=== PATIENT | male | born 1960 | race Caucasian/White ===

== ENCOUNTER 2018-09-20 07:06 | Day surgery (SDC) | payer OTHER ==
[2018-09-20] MEDS ORDERED: ceFAZolin 2 GM/50 ML 2 GM/50 ML BAG IV ONE (07:45)
[2018-09-20] MEDS ORDERED: BUPIVACAINE 0.5% PF 30 ML VIAL ONE (08:08)
--- NOTE | 2018-09-20 08:08 | ANESTHESIA ---
Pre-Anesthesia VS, & Labs - Diagnosis right inguinal hernia - Procedure right inguinal hernia repair Vital Signs: Temp Pulse Resp BP Pulse Ox 36.2 C L 70 16 146/96 H 96 09/20/18 07:53 09/20/18 07:53 09/20/18 07:53 09/20/18 07:53 09/20/18 07:53 Height 5 ft 5 in Weight (kg) 81.8 kg - NPO >8 hours Home Medications and Allergies Home Medications: Ambulatory Orders Aspirin [Aspirin EC] 81 mg PO DAILY 09/07/18 Metformin HCl 500 mg PO BID 09/07/18 Omeprazole 20 mg PO DAILY 09/07/18 Oxybutynin Chloride 5 mg PO TID PRN 09/07/18 Testosterone Cypionate [Depo-Testosterone] 200 mg IM ONCE 09/07/18 Simvastatin [Zocor] 10 mg PO QPM 08/31/14 Tamsulosin [Flomax] 0.4 mg PO DAILY 08/31/14 Aspirin [Aspirin EC] 81 mg PO DAILY 09/07/18 Metformin HCl 500 mg PO BID 09/07/18 Omeprazole 20 mg PO DAILY 09/07/18 Oxybutynin Chloride 5 mg PO TID PRN 09/07/18 Testosterone Cypionate [Depo-Testosterone] 200 mg IM ONCE 09/07/18 Allergies/Adverse Reactions: Allergies Allergy/AdvReac Type Severity Reaction Status Date / Time No Known Drug Allergies Allergy Verified 08/31/14 08:47 Anes History & Medical History - Anesthetic History Anesthesia Complications: reports: Other-see comment (issues with breathing post op) Family history of Anesthesia Complications: Denies Family history of Malignant Hyperthermia: Denies - Medical History Cardiovascular: reports: Congestive heart failure, High cholesterol, Murmur Pulmonary: reports: Other Gastrointestinal: reports: GERD, Ulcers, Diverticulitis Urinary: reports: Benign prostate hypertrophy Musculoskeletal: reports: Osteoarthritis Endocrine/Autoimmune: reports: Type 2 diabetes Skin: reports: None Smoking Status: Never smoker - Surgical History General: Colonoscopy, Other Orthopedic: Other Exam General: Alert Dental: Other (cap) Mouth Openin Fingerbreadth Neck Mobility: Normal Mallampati classification: II Thyromental Distance: greater than 6 cm Respiratory: Lungs clear, Normal breath sounds, No respiratory distress, No accessory muscle use Cardiovascular: Regular rate, Normal S1, Normal S2, No murmurs Mental/Cognitive Status: Alert/Oriented X3, Normal for patient Plan Anesthesia Type: General Consent for Procedure(s) Verified and Reviewed: Yes Code Status: Attempt Resuscitation ASA classification: 2-Mild systemic disease Is this case an emergency?: No
[2018-09-20] MEDS ORDERED: LACTATED RINGERS 1,000 ML IV ONE ×2 (08:10→09:33)
[2018-09-20] MEDS ORDERED: BUPIVACAINE 0.5% PF 30 ML VIAL INFIL ONE (09:16)
[2018-09-20] MEDS ORDERED: LIDOCAINE-MPF 2% 5 ML VIAL IM ONE (09:30)
[2018-09-20] MEDS ORDERED: ONDANSETRON 4 MG/2 ML VIAL IVP ONE (09:30)
[2018-09-20] MEDS ORDERED: MIDAZOLAM 2 MG/2 ML VIAL IVP ONE (09:30)
[2018-09-20] MEDS ORDERED: fentaNYL 100 MCG/2 ML VIAL IVP ONE (09:30)
[2018-09-20] MEDS ORDERED: KETOROLAC 30 MG/ML VIAL IVP ONE (09:30)
[2018-09-20] MEDS ORDERED: PROPOFOL 200 MG/20 ML VIAL IVP ONE (09:30)
[2018-09-20] MEDS ORDERED: HYDROmorphone 0.5 MG/0.5 ML SYRINGE IVP PRN (09:58)
[2018-09-20] MEDS ORDERED: HYDROcod/ACETAM 5/325 MG TABLET PO PRN (09:58)
[2018-09-20] MEDS ORDERED: ONDANSETRON 4 MG/2 ML VIAL IVP PRN (09:58)
--- NOTE | 2018-09-20 10:04 | OPERATIVE REPORT ---
Operative Report - General Procedure Date: 09/20/18 Planned Procedure: Right inguinal herniorrhaphy Pre-Op Diagnosis: Right inguinal hernia Procedure Performed: Right direct inguinal herniorrhaphy with mesh Post Op Diagnosis: Right direct inguinal hernia with significant scarring of the inguinal neno - Procedure Note Primary Surgeon: Braeden Keating MD Anesthesia Provider: Milton Minor CRNA Anesthesia Technique: Local (30 mL 1/2% marcaine), MAC IV Fluids (mL): 900 Estimated Blood Loss (mL): 5 Drain/Tube Type: Other (None) Complications: None - Other Other Information/Narrative: OPERATIVE DESCRIPTION/REPORT: After verbal and written informed consent was obtained detailing the risks of infection, bleeding requiring transfusion with its risks, nerve injury, and , and after I met with the patient confirming the surgery and the site of the surgery and after initialing the site of the surgery with a surgical marker, the patient was brought to the operative suite and placed supine on the operating table. Great care was taken to avoid pressure points to prevent pressure necrosis or nerve injury. Monitoring devices were applied along with TEDs and pneumatic compressive stockings (to prevent DVT). The patient received preoperative antibiotics for surgical prophylaxis. Milton Minor CRNA sedated and anesthetized the patient for the entire procedure. The patient was prepped and draped in the usual sterile manner. With the patient draped my initials were clearly visible. A "time in" then confirmed that the patient was identified with 3 identifiers (name, date and medical record number), the history and physical was in the chart, the signed consent confirming the procedure was in the chart, the patient was in the correct position, the aforementioned prophylactic measures were in place or given, we had the correct personnel and equipment to complete the procedure and that anesthesia, surgery and nursing were given an opportunity to express any concerns. With the agreement of everyone in the room, we proceeded with the operation. After the inguinal area was injected with % marcaine, anesthetizing the area, a standard inguinal incision was made and dissection was carried down to the external oblique aponeurosis using a combination of Metzenbaum scissors and Bovie electrocautery. There was marketed scarring in this area as though this was a redo herniorrhaphy. Due to the amount of scarring a look back at the skin and I may be able to make out a previous incision. This was not discussed or even appreciated preoperatively. The external oblique aponeurosis was cleared of overlying adherent tissue, and the external ring was delineated. There was significant scarring in the area and the cord contents were densely adherent to a hernia sac that was following the cord contents down towards the scrotum. The hernia sac contained bowel. I cannot emphasize how much scarring there was in the area. In attempting to free the cord contents from the inguinal canal there was significant scarring and obliteration of the space. Due to concerns that I had for injuring the cord contents, I examined the cord contents and failed to reveal any sort of indirect sac. Having exposed the inguinal canal, the cord structures were from the hernia sac using sharp dissection ue to the adhesions, and a Westmont drain was placed around the cord structures at the level of the pubic tubercle. This Westmont drain was then used to retract the cord structures as needed. The hernia sac was then dissected back to the opening in the floor of the canal which could be done without extensive dissection of the inguinal canal as it was located medially just 1 cm lateral to the pubic tubercle. The hernia was inverted back into the abdominal cavity and a Covidien medium mesh plug (Ref# [id number], Lot# [id number], Use by date 2022-09-01) inserted into the hernia defect. The plug was secured using interrupted 0 PDS sutures to approximate the shelving edge of Poupart's ligament, grabbing a small edge of the mesh in the process, to the conjoined tendon. 4 sutures were used to approximate the shelving edge to the conjoined tendon thus repairing the direct hernia. The enlay patch was not used because dissection of this area would have caused significant harm and the hernia had already been repaired. This level of redundancy was not worth the surgical risk. The Westmont drain was removed. The wound was then irrigated using sterile saline, and hemostasis was obtained using Bovie electrocautery. The remaining local anesthesia was injected up to a total of 30 mL of half percent Marcaine. Lina's fascia was approximated using a running 3-0 Vicryl suture. The skin incision was approximated with 4-0 Monocryl in a subcuticular fashion. The skin was prepped with benzoin and steristrips were applied. At this point a time out was performed that confirmed that all the counts were correct, the procedure that was performed, the blood loss, the IV fluids administered, and the patients condition. A dressing was then applied. Gentle downward traction ensured that the testes were well seated in the scrotum. Having tolerated the procedure well, the patient was taken to recovery room in good and stable condition. Dragon disclaimer: This document was created in part using voice recognition technology. Because of the inherent limitations of the system ([employer]'s Dragon Dictate user manual states that the licensee understands that speech recognition is a statistical process and that recognition errors are inherent in the process), occasional same sounding word substitutions and grammatical errors do occur and persist despite proofreading. Please read this document for context.
[2018-09-20] MEDS ORDERED: HYDROcod/ACETAM 5/325 MG TABLET ONE (10:51)
[2018-09-20 11:03] VITALS: BP 141/96
== END 2018-09-20 07:07 | disposition home or self-care (01) ==
LOC: SDS 07:06
PROVIDERS: ATTEND Surgery
PROC: 0YU50JZ Supplement Right Inguinal Region with Synthetic Substitute, Open Approach (ICD-10-PCS; principal; 2018-09-20 08:30)
DX: K40.90 Unilateral inguinal hernia, without obstruction or gangrene, not specified as recurrent (principal); L90.5 Scar conditions and fibrosis of skin; E11.9 Type 2 diabetes mellitus without complications; K21.9 Gastro-esophageal reflux disease without esophagitis; E78.5 Hyperlipidemia, unspecified; N40.0 Benign prostatic hyperplasia without lower urinary tract symptoms; Z79.82 Long term (current) use of aspirin; Z79.84 Long term (current) use of oral hypoglycemic drugs
CPT/HCPCS: 49505; A9270; J0690; J7120

== ENCOUNTER 2019-08-15 10:09 | Emergency (ER) | payer OTHER ==
[2019-08-15] MEDS ORDERED: HYDROmorphone 1 MG/ML CARPUJECT IVP STA ×2 (10:29→11:43)
--- NOTE | 2019-08-15 10:33 | ED Physician Documentation ---
PD HPI LOWER EXT INJURY - Stated complaint Stated Complaint: RT ANKLE INJ - Chief complaint Chief Complaint: Trauma Ext - History obtained from History obtained from: Patient, Family - History of Present Illness PD HPI LOW EXT INJURY LOCATION: Right, Foot Type of injury: Twist Where injury occurred: Other (outside in the snow and ice) Timing - onset: How many hours ago (1) Timing - duration: Hours (1) Timing - details: Abrupt onset Pain level max: 8 Pain level now: 3 Improved by: Rest, Ice, Immobilization Worsened by: Moving, Palpating Associated symptoms: No: Weakness, Numbness, Tingling, Swelling Contributing factors: No: Anticoagulated Similar symptoms before: Has not had sx before Recently seen: Not recently seen Review of Systems Constitutional: denies: Fever, Chills Respiratory: denies: Cough GI: denies: Vomiting, Diarrhea Skin: denies: Rash Musculoskeletal: denies: Neck pain, Back pain Neurologic: denies: Headache PD PAST MEDICAL HISTORY - Past Medical History Cardiovascular: Congestive heart failure, High cholesterol, Murmur Respiratory: Other Endocrine/Autoimmune: Type 2 diabetes GI: GERD, Ulcers, Diverticulitis : Benign prostate hypertrophy HEENT: Chronic vision loss Psych: Anxiety, Claustrophobia Musculoskeletal: Osteoarthritis Derm: None - Past Surgical History Past Surgical History: Yes General: Colonoscopy, Other Ortho: Other - Present Medications Home Medications: Ambulatory Orders Medication Instructions Recorded Confirmed Simvastatin [Zocor] 10 mg PO QPM 08/31/14 09/20/18 Tamsulosin [Flomax] 0.4 mg PO DAILY 08/31/14 09/20/18 Aspirin [Aspirin EC] 81 mg PO DAILY 09/07/18 09/20/18 Metformin HCl 500 mg PO BID 09/07/18 09/20/18 Omeprazole 20 mg PO DAILY 09/07/18 09/20/18 Oxybutynin Chloride 5 mg PO TID PRN 09/07/18 09/20/18 Testosterone Cypionate 200 mg IM ONCE 09/07/18 09/20/18 [Depo-Testosterone] Oxycodone HCl/Acetaminophen 1 - 2 each PO Q6H PRN #30 tablet 08/15/19 [Percocet 5-325 mg Tablet] - Allergies Allergies/Adverse Reactions: Allergies Allergy/AdvReac Type Severity Reaction Status Date / Time No Known Drug Allergies Allergy Verified 08/15/19 10:15 - Social History Does the pt smoke?: No Smoking Status: Never smoker Does the pt drink ETOH?: Yes Does the pt have substance abuse?: No - Immunizations Immunizations are current?: Yes - POLST Patient has POLST: No PD ED PE NORMAL - Vitals Vital signs reviewed: Yes - General General: Alert and oriented X 3, No acute distress, Well developed/nourished - HEENT HEENT: Moist mucous membranes - Neck Neck: Supple, no meningeal sign - Cardiac Cardiac: RRR, Strong equal pulses - Respiratory Respiratory: No respiratory distress, Clear bilaterally - Abdomen Abdomen: Soft, Non tender, Non distended - Derm Derm: Warm and dry - Extremities Extremities: Other (Deformity to the right ankle. Neurovascular intact. Swelling present.) - Neuro Neuro: Alert and oriented X 3 - Psych Psych: Normal mood, Normal affect Results - Vitals Vitals: Vital Signs - 24 hr 08/15/19 08/15/19 08/15/19 10:15 10:52 11:56 Temperature 36.6 C Heart Rate 80 76 70 Respiratory 16 18 18 Rate Blood Pressure 152/95 H 141/100 H 145/94 H O2 Saturation 96 95 95 08/15/19 08/15/19 08/15/19 12:30 12:33 12:35 Temperature Heart Rate 93 81 79 Respiratory 17 14 16 Rate Blood Pressure 143/86 H 146/86 H O2 Saturation 97 97 97 08/15/19 08/15/19 12:40 13:58 Temperature Heart Rate 77 89 Respiratory 18 18 Rate Blood Pressure 128/91 H 151/93 H O2 Saturation 97 94 Oxygen O2 Source Room air - Rads (name of study) Right ankle x-ray Radiology: Prelim report reviewed, EMP read contemporaneously, See rad report (1. Acute trimalleolar right ankle fracture. 2. Complete posterior dislocation and mild to moderate lateral subluxation of the right tibiotalar joint. 3. Marked right ankle swelling. ) Right ankle x-ray postreduction Radiology: Prelim report reviewed, EMP read contemporaneously, See rad report (Post reduction changes at the right ankle. The ankle mortise and fracture fragments appear aligned. ) Procedures - Splint (location) r ankle Splint applied by: Physician, Tech Type of splint: Fiberglass, Short leg, Posterior, Stirrup Other: Patient tolerated well, No complications, Neurovascular intact, Crutches provided - Reduction Body part reduced: Right, Ankle Fracture or dislocation: Fracture dislocation Anesthesia: Conscious sedation Reduction aftercare: NV intact, Xray confirms reduction, Alignment improved, Splint applied, Crutches, Patient tolerated well - Procedural sedation Sedation prep: Informed consent, Last meal (5 hrs MANAGER [facility]), IV O2 monitor, ET CO2 monitor, Other (2nd MD present Dr. Richards) Sedation medications: propofol, given by MD Patient status during sedation: Responds to tactile, Vitals remained stable, Maintained airway, Recovered uneventfully Sedation recovery: Recovered uneventfully, Back to baseline PD MEDICAL DECISION MAKING - ED course Complexity details: reviewed results, re-evaluated patient, considered differential, d/w patient, d/w family, d/w wig sales consultant ED course: Patient with a fracture dislocation of the right ankle. Reduced under propofol sedation. Tolerated well. Placed in a posterior splint with stirrup. Discussed the case with Dr. Denney, orthopedics who will follow-up in the office. Neurovascularly intact. Compartments are soft. Patient and family counseled regarding signs and symptoms for which I believe and urgent re- evaluation would be necessary. Patient with good understanding of and agreement to plan and is comfortable going home at this time This document was made in part using voice recognition software. While efforts are made to proofread this document, sound alike and grammatical errors may occur. Departure - Departure Disposition: 01 Home, Self Care Clinical Impression: Trimalleolar fracture of ankle, closed Qualifiers: Encounter type: initial encounter Laterality: right Qualified Code(s): S82.851A - Displaced trimalleolar fracture of right lower leg, initial encounter for closed fracture Ankle dislocation Qualifiers: Encounter type: initial encounter Laterality: right Qualified Code(s): S93.04XA - Dislocation of right ankle joint, initial encounter Condition: Good Instructions: ED Fx Lower Ext Follow-Up: Oneil Denney MD [Provider Admit Priv/Credential] - [facility] [Provider Group] - Within 1 week Prescriptions: Oxycodone HCl/Acetaminophen [Percocet 5-325 mg Tablet] 1 - 2 each PO Q6H PRN #30 tablet PRN Reason: pain Comments: Elevate the leg whenever possible. You are to be nonweightbearing. Use the crutches to get around. Follow-up with orthopedics within the next week. Return if you worsen. This injury will likely require surgery. Do not drink alcohol or drive while on narcotic pain medicine. Note that many narcotic pain relievers also contain tylenol/acetaminophen. Please ensure that your total dose of acetaminophen from all sources does not exceed 3 grams (3000mg) per day. You may constipated on this medication, take a stool softener such as "Colace" twice a day while you are on it. Also recommend a [id number] laxative such as senna or MiraLAX any day that you do not have a bowel movement. If you received narcotic pain medication in the emergency department, do not drive or operate machinery for the next 24 hours. Discharge Date/Time: 08/15/19 14:04
[2019-08-15] MEDS ORDERED: PROPOFOL 200 MG/20 ML VIAL IVP STA (12:13)
--- NOTE | 2019-08-15 12:36 | XRAY Report ---
Reason: fall, R ankle deformity Procedure Date: 08/15/2019 Accession Number: [id number] / [id number] Procedure: XR - Ankle 3 View RT CPT Code: Final Report FULL RESULT: EXAM: RIGHT ANKLE RADIOGRAPHY EXAM DATE: 08/15/2019 12:03 PM. CLINICAL HISTORY: Fall, right ankle deformity. COMPARISON: None. TECHNIQUE: 3 views. FINDINGS: Bones: Acute comminuted and displaced posterior malleolar fracture. Acute comminuted distal right fibular fracture with 4 mm of lateral displacement and 60 degrees of dorsal angulation of the more distal fragment. Small avulsion fracture at the tip of the medial malleolus is noted. Medial malleolus not well evaluated due to projection. Joints: Complete posterior dislocation and lateral subluxation of the tibiotalar joint. Soft Tissues: Marked right ankle soft tissue swelling noted. No radiopaque foreign bodies are noted. IMPRESSION: 1. Acute trimalleolar right ankle fracture. 2. Complete posterior dislocation and mild to moderate lateral subluxation of the right tibiotalar joint. 3. Marked right ankle swelling. RADIA
[2019-08-15] MEDS ORDERED: oxyCODONE 5 MG TABLET PO STA (13:07)
--- NOTE | 2019-08-15 13:09 | XRAY Report ---
Reason: s/p reduction Procedure Date: 08/15/2019 Accession Number: [id number] / [id number] Procedure: XR - Ankle 3 View RT CPT Code: Final Report FULL RESULT: EXAM: RIGHT ANKLE RADIOGRAPHY EXAM DATE: 08/15/2019 01:01 PM. CLINICAL HISTORY: Status post reduction. COMPARISON: ANKLE 3 VIEW RT 08/15/2019 11:30 AM. TECHNIQUE: 3 views. FINDINGS: Ankle now in a splint. Fracture of the distal fibula appears aligned. The medial malleolar fracture appears nondisplaced. Minimal displacement of posterior malleolus fracture. The ankle mortise appears aligned. IMPRESSION: Post reduction changes at the right ankle. The ankle mortise and fracture fragments appear aligned. RADIA
[2019-08-15 13:58] VITALS: BP 151/93
== END 2019-08-15 14:04 | disposition home or self-care (01) ==
LOC: ED 10:09
DX: S82.851A Displaced trimalleolar fracture of right lower leg, initial encounter for closed fracture (principal); S93.04XA Dislocation of right ankle joint, initial encounter; W00.0XXA Fall on same level due to ice and snow, initial encounter; E11.9 Type 2 diabetes mellitus without complications; Z79.84 Long term (current) use of oral hypoglycemic drugs; Z79.82 Long term (current) use of aspirin
CPT/HCPCS: 27818; 73610; 96374; 96376; 99152; 99153; 99283; 99284; A9270; J1170

== ENCOUNTER 2019-08-28 15:23 | Outpatient (CLI) | payer OTHER ==
[2019-08-28 15:49] LABS: BASOPHILS # (AUTO) 0.1 10^3/uL (0.0-0.1); BASOPHILS % (AUTO) 0.8 %; EOSINOPHILS # (AUTO) 0.2 10^3/uL (0.0-0.7); EOSINOPHILS % (AUTO) 2.4 %; HGB - HEMOGLOBIN 16.5 g/dL (14.0-18.0); LYMPHOCYTES # (AUTO) 1.9 10^3/uL (1.5-3.5); LYMPHOCYTES % (AUTO) 25.1 %; MEAN CORPUSCULAR HEMOGLOBIN 29.6 pg (27.0-31.0); MEAN CORPUSCULAR HGB CONC 32.5 g/dL (32.0-36.0); MEAN CORPUSCULAR VOLUME 91.2 fL (80.0-94.0); MEAN PLATELET VOLUME 9.1 fL (7.4-11.4); MONOCYTES # (AUTO) 0.8 10^3/uL (0.0-1.0); NEUTROPHILS # (AUTO) 4.6 10^3/uL (1.5-6.6); NEUTROPHILS % (AUTO) 60.3 %; PLT - PLATELET COUNT 278 10^3/uL (130-450); RED BLOOD COUNT 5.57 10^6/uL (4.70-6.10); RED CELL DISTRIBUTION WIDTH 13.8 % (12.0-15.0); WHITE BLOOD COUNT 7.7 x10^3/uL (4.8-10.8)
[2019-08-28 16:02] LABS: CALCIUM 9.2 mg/dL (8.5-10.3); CREATININE 1.1 mg/dL (0.6-1.2)
[2019-08-28 16:09] LABS: HEMOGLOBIN A1C 0.93 g/dL; HEMOGLOBIN A1C % 7.2 % (4.6-6.2)
== END 2019-08-28 15:24 | disposition home or self-care (01) ==
LOC: LAB 15:23
PROVIDERS: ATTEND Orthopaedic Surgery Sports Medicine
DX: Z01.812 Encounter for preprocedural laboratory examination (principal); S82.851D Displaced trimalleolar fracture of right lower leg, subsequent encounter for closed fracture with routine healing; E11.9 Type 2 diabetes mellitus without complications
CPT/HCPCS: 36415; 80048; 83036; 85025

== ENCOUNTER 2019-08-30 06:03 | Day surgery (SDC) | payer OTHER ==
--- NOTE | 2019-08-28 16:08 | CONSULTATION NOTE ---
Consultation Report: Dr Denney had requested that we see this patient. Patient in to Pre anesthesia office today. Has right ankel fracture which is scheduled for repair on the of this month. Patient reports history of diabetes and takes metformin for that. Reports his BS are under control. He will have some labs drawn today including his A1C. He denies any history of heart disease, denies history of chest pain/pressure or sob at rest and/or with exertion. Denies any history of ID's in the past. Denies any lung disease, and respiratory problems. Over all looks healthy. He reports delayed emergence and "shallow breathing" postoperative with his previous surgeries. I did speak with him about doing a regional nerve block to minimize the use of opioids and anesthetic drugs to preserve his breathing capacities postoperatively. He agreed with the nerve block.
[2019-08-30] MEDS ORDERED: CEFAZOLIN SODIUM IN 0.9 % NACL 2 GM/100 ML BAG IV ONE (06:25)
[2019-08-30] MEDS ORDERED: LACTATED RINGERS 1,000 ML IV ONE ×2 (06:25→08:53)
--- NOTE | 2019-08-30 06:54 | ANESTHESIA ---
Pre-Anesthesia VS, & Labs - Diagnosis right ankle fracture - Procedure right ankle ORIF Vital Signs: Temp Pulse Resp BP Pulse Ox 36.1 C L 78 16 159/99 H 95 08/30/19 06:25 08/30/19 06:25 08/30/19 06:25 08/30/19 06:25 08/30/19 06:25 Height 5 ft 5 in Weight (kg) 80.6 kg Body Mass Index 29.4 Home Medications and Allergies Home Medications: Ambulatory Orders Cyanocobalamin (Vitamin B-12) [Vitamin B-12 (1000 mcg sublingual)] 1,000 mcg SL DAILY 08/28/19 Fluticasone Propionate [24 Hour Allergy] 2 spray NS DAILY 08/28/19 Naproxen Sodium [Aleve] 220 mg PO ONCE PRN 08/28/19 Simvastatin [Zocor] 40 mg PO QPM 08/31/14 Tamsulosin [Flomax] 0.4 mg PO DAILY 08/31/14 Aspirin [Aspirin EC] 81 mg PO DAILY 09/07/18 Metformin HCl 500 mg PO BID 09/07/18 Omeprazole 40 mg PO DAILY 09/07/18 Oxybutynin Chloride 5 mg PO TID PRN 09/07/18 Testosterone Cypionate [Depo-Testosterone] 200 mg IM ONCE 09/07/18 Cyanocobalamin (Vitamin B-12) [Vitamin B-12 (1000 mcg sublingual)] 1,000 mcg SL DAILY 08/28/19 Fluticasone Propionate [24 Hour Allergy] 2 spray NS DAILY 08/28/19 Naproxen Sodium [Aleve] 220 mg PO ONCE PRN 08/28/19 Allergies/Adverse Reactions: Allergies Allergy/AdvReac Type Severity Reaction Status Date / Time No Known Drug Allergies Allergy Verified 08/15/19 10:15 Anes History & Medical History - Anesthetic History Anesthesia Complications: reports: No previous complications, Other-see comment (reports postoperative " regional nerve block") Family history of Anesthesia Complications: Denies Family history of Malignant Hyperthermia: Denies - Medical History Cardiovascular: reports: High cholesterol, Murmur Pulmonary: reports: Other Gastrointestinal: reports: GERD, Ulcers, Diverticulitis Urinary: reports: Benign prostate hypertrophy Neuro: reports: None Musculoskeletal: reports: Osteoarthritis Endocrine/Autoimmune: reports: Type 2 diabetes Skin: reports: None Smoking Status: Former smoker Psychosocial: reports: Alcohol - Surgical History General: Colonoscopy, Other Orthopedic: Other Exam General: Alert, Oriented x3, Cooperative, No acute distress Dental: WNL Mouth Openin Fingerbreadth Neck Mobility: Normal Mallampati classification: II Thyromental Distance: 4-6 cm Respiratory: Lungs clear, Normal breath sounds, No respiratory distress, No accessory muscle use Cardiovascular: Regular rate, Normal S1, Normal S2, No murmurs Abdomen: Normal bowel sounds, Soft, No tenderness, No hepatospenomegaly, No masses Extremities: No clubbing, No cyanosis, No edema, Normal pulses, No tenderness/swelling Neurological: Normal gait, Normal speech, Strength at 5/5 X4 ext, Normal tone, Sensation intact, Cranial nerves 3-12 NL, Reflexes 2+ Mental/Cognitive Status: Alert/Oriented X3, Normal for patient Cognitive Status: Within normal limits Plan Anesthesia Type: General, Popliteal Block, Adductor Block Regional Block: Per Surgeon's request for Post Op pain control Consent for Procedure(s) Verified and Reviewed: Yes Code Status: Attempt Resuscitation ASA classification: 2-Mild systemic disease Is this case an emergency?: No
[2019-08-30] MEDS ORDERED: ROPIVACAINE 0.5% PF 20 ML AMPULE ONE (07:06)
[2019-08-30] MEDS ORDERED: BUPIVACAINE 0.25% PF 30 ML VIAL ONE (07:07)
[2019-08-30] MEDS ORDERED: ONDANSETRON 4 MG/2 ML VIAL IVP ONE (07:45)
[2019-08-30] MEDS ORDERED: DEXAMETHASONE 4 MG/ML VIAL IVP ONE (07:45)
[2019-08-30] MEDS ORDERED: MIDAZOLAM 2 MG/2 ML VIAL IVP ONE (07:45)
[2019-08-30] MEDS ORDERED: LIDOCAINE-MPF 2% 5 ML VIAL IM ONE (07:45)
[2019-08-30] MEDS ORDERED: PHENYLEPHRINE 10 MG/ML VIAL IV ONE (07:45)
[2019-08-30] MEDS ORDERED: fentaNYL 100 MCG/2 ML VIAL IVP ONE (07:45)
[2019-08-30] MEDS ORDERED: ePHEDrine 50 MG/ML VIAL IVP ONE (07:45)
[2019-08-30] MEDS ORDERED: GLYCOPYRROLATE 1 MG/5 ML VIAL IVP ONE (07:45)
[2019-08-30] MEDS ORDERED: PROPOFOL 200 MG/20 ML VIAL IVP ONE (07:45)
[2019-08-30] MEDS ORDERED: BUPIVACAINE 0.25% PF 30 ML VIAL SUBQ ONE ×2 (08:21)
[2019-08-30] MEDS ORDERED: ONDANSETRON 4 MG/2 ML VIAL IVP PRN (10:42)
[2019-08-30] MEDS ORDERED: oxyCODONE 5 MG TABLET PO PRN (10:42)
[2019-08-30] MEDS ORDERED: fentaNYL 100 MCG/2 ML VIAL ONE (10:43)
--- NOTE | 2019-08-30 10:47 | IMMEDIATE POSTOPERATIVE NOTE ---
Immediate Postoperative Note - Procedure Note Procedure Date: 08/30/19 Pre-Op Diagnosis: Right ankle trimalleolar fracture dislocation Procedure: Right ankle open reduction internal fixation lateral and medial malleoli, Splint treatment posterior malleolar fracture Post-Op Diagnosis: Same Primary Surgeon: Yayo Denney MD Shop Welder: none Anesthesia Type: General LMA, Local, Regional block Findings: as above, also see dictation Complications: No complications Estimated Blood Loss (in cc): 50 Drains, Catheters, Devices: none Specimens and Cultures: none Plan of Care: Patient tolerated procedure well instrument and sponge counts correct patient transferred to recovery room in stable condition. Patient will be nonweightbearing right lower extremity he would ice and elevate at rest he would move knee and toes as comfortable he would use assistance and assist device for ambulation nonweightbearing right lower extremity. He would follow-up in 10 to 14 days or sooner should problems questions or worsening of his condition arise.
--- NOTE | 2019-08-30 10:58 | XRAY Report ---
Reason: ORIF RIGHT ANKLE Procedure Date: 08/30/2019 Accession Number: [id number] / [id number] Procedure: FL - OR C-Arm Procedure CPT Code: Final Report FULL RESULT: EXAM: FLUOROSCOPIC GUIDANCE EXAM DATE: 08/30/2019 10:35 AM. CLINICAL HISTORY: ORIF right ankle. COMPARISON: None. FINDINGS: AP and lateral projection fluoroscopic capture images demonstrate a lateral plate and screw construct securing the fibular fracture with an additional trans-syndesmotic screw as well as an interfragmentary screw. IMPRESSION: Fluoroscopic guidance provided for right ankle ORIF. Total fluoroscopy time: 38 seconds. Number of images: 4. RADIA
[2019-08-30] MEDS ORDERED: ACETAMINOPHEN 1,000 MG/100 ML 100 ML IV ONE (11:04)
[2019-08-30 11:28] VITALS: BP 142/95
[2019-08-30] MEDS ORDERED: oxyCODONE 5 MG TABLET ONE (11:49)
--- NOTE | 2019-08-30 12:52 | OPERATIVE REPORT ---
DATE OF SERVICE: 08/30/2019 Physician: Oneil Denney MD SURGEON: Oneil Denney MD POLITICAL SCIENCE FACULTY MEMBER: None. ANESTHESIA PROVIDER: Lopez Bueno CRNA. ANESTHESIA TYPE: Right side lower extremity regional block under ultrasound guidance as well as 20 mL 0.25% plain Marcaine as well as general laryngeal mask airway anesthesia. ESTIMATED BLOOD LOSS: 50 mL COMPRESSION DEVICE: Left calf sequential compression device boot. TOURNIQUET TIME: 117 minutes at 275 mmHg. FLUIDS: 500 mL lactated Ringer's. ORTHOPEDIC IMPLANTS: Tray distal fibular periarticular plate right side, posterolateral plate long with associated 3.5 fully threaded cortical screws and 4.0 fully threaded cancellous screws as well as an additional 3.5 cortical screw outside of the plate as well as a 5.5 BioComposite Arthrex anchor for the medial malleolus. INTRAOPERATIVE COMPLICATIONS: None noted. PREOPERATIVE DIAGNOSIS: Right ankle trimalleolar fracture dislocation. POSTOPERATIVE DIAGNOSIS: Right ankle trimalleolar fracture dislocation. PROCEDURE 1. Right ankle open reduction and internal fixation of lateral malleolus. 2. Right ankle open reduction and internal fixation of medial malleolus. 3. Right ankle syndesmotic fixation. 4. Right ankle splint fixation of posterior malleolar fracture. HISTORY OF PRESENT ILLNESS: Patient is a 59-year-old male who had an unstable ankle injury a number of days ago, was indicated for operative treatment. Please see previous clinic discussion for risks, benefits, and alternatives. These were again highlighted with the patient in the preoperative care unit. The patient and the patient's 's questions are answered. They verbalize understanding above. The patient verbalized wish to proceed with operative treatment. Informed consent was given. On 08/30/2019, the patient is identified in the preoperative care unit. He identified his right ankle as the operative site. This is signed. The patient receives preoperative weight-based IV antibiotics, brought to the operating room after regional anesthesia was administered. He is placed in a supine position. Head, neck and extremities placed in anatomically comfortable and safe position to avoid peripheral nerve stretch compression. General LMA anesthesia is administered. The patient's right lower extremity is well padded, tourniquet placed high on the right thigh. The patient's right ankle was previously shaved in the preop area and his right lower extremity was pre-scrubbed with Hibiclens solution, then alcohol, followed by ChloraPrep and draped under sterile conditions. At this time, surgical pause identifies right ankle as operative site. At this point, Esmarch bandage is used to exsanguinate the limb. Tourniquet is inflated to 275 mmHg. At this point, surgical pause identifies right ankle again and then a lateral incision was made over the distal fibula centered over the fracture site. This is through skin and then spreading dissection carried out down to the lateral aspect of the fibula, taking care to avoid any injury to the adjacent superficial peroneal nerve. At this point, the periosteum identified over the distal fibula. This is incised and then elevated proximally and distally, exposing the fracture, which was debrided of hematoma. There was noted to be significant comminution of the posterior aspect of the distal fragment making the necessity of a quite long oblique lag screw necessary rather than one that is exactly perpendicular to the fracture angle. After reduction of this fracture, with heel manipulation traction and a reduction clamp, then a lag screw was placed from proximal anterior to distal posterior just through the second cortex to avoid over exuberant penetration and adjacent musculotendinous injury. At this point, this is provisionally fixed with a lag screw, followed by a neutralization plate, posterolateral selected, such that a syndesmotic screw could be placed from posterior lateral to anteromedially. At this point, the plate is held to the bone, which is precontoured and then unicortical, fully threaded cancellous 4.0 screws are placed distally and bicortical screws are placed proximally, which are 3.5 cortical screws. At this point, a large pelvic reduction clamp is used to maintain reduction across the syndesmosis with a neutral dorsiflexion of the ankle, followed by K-wire placement and then ultimately a 4 mm cannulated screw from posterolateral to anteromedial just through the second cortex on purpose so that if this were to fail or break in the future, it could be more easily removed. At this point, the ankle mortise was noted to be nicely reduced as is the syndesmosis. There is noted to be some minimal comminution at the most medial aspect, posterior aspect, and anterior aspect of the lateral fracture. Overall length, alignment is near anatomic. At this point, attention directed to the medial fracture and is noted to be a small avulsion fracture. At this point, an incision is made over the medial malleolus and is noted to be almost a distal and medial sleeve of bone. At this point, once dissection is carried out down to the fracture site it is explored to make sure there is no other more transverse or more proximal fracture of that medial malleolus. At this point, a BioComposite anchor is buried just adjacent to the fracture site after being punched and then two horizontal mattress sutures are used to pass through this thin sliver of bone and ligamentous structure, thereby reducing this medial malleolus fracture and fixing it in place. Suture limbs are tied and then cut and then laid flush. At this point, this medial side is noted to be well reduced. At this point, stress examination is noted to be negative. Final fluoroscopic images are taken. At this point, the wounds are copiously irrigated. Hemostasis is achieved and then the medial [id number] split ligamentous is repaired with 0 Vicryl and the skin is closed with 0 Vicryl, 2-0 Vicryl and interrupted nylon suture. The periosteum is closed laterally over the bone and plate, taking care to avoid any capture of neurovascular structures, and then skin is closed using 0 Vicryl, 2-0 Vicryl and interrupted nylon suture. At every level copious irrigation is carried out prior to closure. At this point, skin is washed and dried. Local anesthetic is infused. A large Xeroform dressing applied and 4 x 4 is placed. The patient is placed in a well- padded Sidney-type splint in neutral. The patient tolerated the procedure well. Instrument and sponge counts were correct. The patient was transferred to the recovery room in stable condition. He will follow standard postoperative right ankle open reduction and internal fixation protocol. The patient's is contacted in the waiting room, case is discussed. Her questions are answered. She verbalized understanding and agreement and satisfaction with plan as outlined as it had been preoperatively. The patient will be on perioperative antibiotics, perioperative DVT prophylaxis with aspirin and analgesics as necessary. They had denied any contraindication to medication plan and will use them as directed. Followup in 10-14 days or sooner should problems or questions arise. TD: 08/30/2019 11:03 DIANA
== END 2019-08-30 06:04 | disposition home or self-care (01) ==
LOC: SDS 06:03
PROVIDERS: ATTEND Orthopaedic Surgery Sports Medicine
PROC: 0QSG04Z Reposition Right Tibia with Internal Fixation Device, Open Approach (ICD-10-PCS; 2019-08-30)
PROC: 0SSF04Z Reposition Right Ankle Joint with Internal Fixation Device, Open Approach (ICD-10-PCS; 2019-08-30)
PROC: 0QSJ04Z Reposition Right Fibula with Internal Fixation Device, Open Approach (ICD-10-PCS; principal; 2019-08-30 07:30)
DX: S82.851A Displaced trimalleolar fracture of right lower leg, initial encounter for closed fracture (principal); E11.9 Type 2 diabetes mellitus without complications; E78.5 Hyperlipidemia, unspecified; R01.1 Cardiac murmur, unspecified; K21.9 Gastro-esophageal reflux disease without esophagitis; Z87.891 Personal history of nicotine dependence; Z79.82 Long term (current) use of aspirin; Z79.84 Long term (current) use of oral hypoglycemic drugs; N40.0 Benign prostatic hyperplasia without lower urinary tract symptoms; X58.XXXA Exposure to other specified factors, initial encounter
CPT/HCPCS: 27814; 27829; A9270; C1713; J0131; J0690; J7120

== ENCOUNTER 2019-12-20 08:35 | Outpatient (CLI) | payer OTHER | END 2019-12-20 08:36 | disposition home or self-care (01) | LOC: DI 08:35 | PROVIDERS: ATTEND Family Medicine | DX: I10 Essential (primary) hypertension (principal) | CPT/HCPCS: 93306 ==

== ENCOUNTER 2020-03-26 09:00 | Outpatient (CLI) | payer OTHER ==
--- NOTE | 2020-03-26 09:53 | SLEEP CARE CONSULTATION ---
Information from patient questionnaire entered by Alice Diaz. I have reviewed and concur with the information entered by Alice Diaz. This document represents the service I personally performed and the decisions made by me, Arlen Armstrong ARNP. History of Present Illness Service Date and Time: 03/26/2020 0900 Reason for Visit: New patient Chief Complaint: reports: Insomnia (hard to fall asleep and wake up throughout night), Unrefreshed sleep, Snoring, Excessive daytime sleepiness, Frequent awakenings at night. denies: Observed pauses in breathing, Fatigue, Other Date of Onset: 10 years Usual bedtime: 2200 Time it takes to fall asleep: 1+ hours Snores at night: Yes Observed to quit breathing while asleep: No Sleeps alone due to snoring: No Number of times waking at night: 2 at least Reasons for waking at night: reports: Snoring, Bathroom, Other (weird dreams). denies: Choking, Gasping for air, Pain Toss, Turn, or Twitch while sleeping: Yes Recalls having dreams: Yes Usually gets out of bed at: [id number] Feels refreshed in the morning: No Morning headache: No Sleepy or fatigued during the day: Yes Ever fallen asleep while driving: Yes (drowsy driving, no accidents) Takes day naps: Yes (1 PM most days; an hour) Dreams during day naps: Yes Prior sleep studies: No Additional HPI information: I had the pleasure of seeing CANDIDA BAEZA today regarding the possibility of him having a sleep disorder. His current complaints are insomnia, unrefreshed sleep, snoring, excessive daytime sleepiness and frequent night awakenings. He has a history of hypertension and diabetes. He recent broke his ankle last August and had to go on blood pressure medication. He walks daily and is trying to lose weight to reduce his hypertension. His is currently using a CPAP m payal. - Parasomnia Symptoms Ever been unable to move upon waking from sleep: Yes (twice that he can remember) Walks in sleep: No Talks in sleep: Yes Ever acted out dreams in sleep: Yes Ever felt weak in the knees when startled or emotional: No Bothered by creepy, crawly, restless sensations in legs: Yes (2-3 times a week) Problems with memory or concentration: Yes (intermittent; hard to memorize things) Subjective Initial Check Sleepiness Scale score: 15 Past Medical History Past Medical History: reports: Hypertension, Claustrophobia, Diabetes, Arthritis, Arrythmia (heart skips a beat since 1990-09), Anxiety, Depression, GERD, Attention deficit, Other (broke (R) ankle in August). denies: Congestive Heart Failure, Stroke, Coronary Heart Disease, Anemia, Impotence, Mood disorder Social History The patient's occupation is retired. Patient is and lives in [place]. Have you smoked in the past 12 months: No Alcohol use: Yes Alcohol amount and frequency: 1-2, once or twice/week Caffeine use: Yes Caffeine amount and frequency: 1 cup coffee/day Family History Family history of sleep disordered breathing: Yes Family Hx Sleep Apnea: Grandparent: Snoring Allergies and Home Medications Drug allergies reviewed: Yes (NKDA) Home medication list reviewed: Yes Allergy and home medication list: Fluticasone oxybutynin omeprazole simvastatin tamsulosin baby aspirin vitamin B-12, sublingual testosterone cypionate alleve metformin metoprolol succinate Review of Systems Weight loss over past 5 years: 20 Cardiovascular: reports: high blood pressure, irregular heart rate or pulse (heart skips a beat). denies: palpitations, chest pain, leg or foot swelling, have to sleep sitting up Respiratory: denies: chronic cough Gastrointestinal: reports: heartburn, difficulty swallowing (sometimes, due to dehydration) Urinary: reports: incontinence, frequency. denies: impotence Neurological: reports: gait or balance problems. denies: headaches, seizure, head trauma, fainting or unconsciousness Psychiatric: reports: Attention Deficit Hyperactivity, anxiety, depression, claustrophobia. denies: mood disorder Ear/Nose/Throat: reports: nasal congestion, sinus problems, dry mouth/throat (daily, throughout the day), wisdom teeth removed. denies: nose bleeds, hoarseness, injury to nose, tonsillectomy Endocrine: reports: increased urination. denies: thyroid disease Musculoskeletal: reports: joint pain, back pain, muscle pain or cramping Immunologic: reports: allergies to food or environment (*environment, hayfever) Physical Exam Blood Pressure: 128/88 Cuff size: regular Heart Rate: 65 O2 Saturation: 98 Height: 5 ft 5 in Weight: 176 lb 9.6 oz Body Mass Index: 29.3 BMI Classification: Overweight Neck circumference: 15.5 (inches) HEENT: No craniofacial malformation Nostrils: patent to airflow Turbinates: swollen Septum: midline Mouth and throat: normal Soft palate: normal Hard palate: normal Uvula: edematous Uvula visualization: 100% Mallampati Class I Tongue: normal in size Tonsils: 1+ Chin and jaw: normal size and position Neck: normal w/o lymphadenopathy or thyromegaly Heart: regular rate and rhythm Lungs: clear bilaterally Impression and Plan 1. Suspected Obstructive Sleep Apnea-Hypopnea Syndrome, as suggested by a history of loud and irregular snoring, frequent awakening during the night, unrefreshed sleep, cognitive impairment, and excessive daytime sleepiness. Narrow oropharynx and obesity are common predisposing factors for obstructive sleep apnea-hypopnea syndrome. I recommend proceeding to polysomnography to confirm the diagnosis and to assess severity. If the patient has significant sleep disordered breathing, a manual CPAP titration study will also be performed to find the optimal treatment pressure. I informed the patient of what the sleep studies involve and after some discussion, obtained agreement to proceed. The pathophysiology of obstructive sleep apnea-hypopnea syndrome was discussed with the patient and health risks of cardiovascular and cerebrovascular disease if not treated. [facility] brochure for obstructive sleep apnea-hypopnea syndrome given and reviewed. Risks of drowsy driving discussed in detail and patient advised to avoid long distance driving and to machine puller over at the first sign of drowsiness. Patient agreed to plan. [facility] drowsy driving brochure given. * Schedule polysomnography +- manual CPAP titration study. * Avoid long distance driving or driving when feeling sleepy. * Avoid alcohol, sedative and muscle relaxant around bedtime. * Attempt to lose weight. * Review instructions provided by trained office staff on how to prepare for the sleep study. * Return for follow-up after sleep study completed. Visit Type: In Office Time Spent with Patient (minutes): 35 Provider Statement: I spent 100% of the Face to Face Visit with the patient with greater than 50% spent counseling the patient and coordination of care.
[2020-03-26 09:54] VITALS: BP 128/88
== END 2020-03-26 09:01 | disposition home or self-care (01) ==
LOC: SC 09:00
PROVIDERS: ATTEND Nurse Practitioner Family
DX: R06.83 Snoring (principal); G47.10 Hypersomnia, unspecified; G47.8 Other sleep disorders; E66.3 Overweight; Z68.29 Body mass index [BMI] 29.0-29.9, adult; E11.9 Type 2 diabetes mellitus without complications; I10 Essential (primary) hypertension; Z79.84 Long term (current) use of oral hypoglycemic drugs
CPT/HCPCS: 99204; 99212

== ENCOUNTER 2020-04-13 20:44 | Outpatient (CLI) | payer OTHER | END 2020-04-13 20:45 | disposition home or self-care (01) | LOC: SC 20:44 | PROVIDERS: ATTEND Nurse Practitioner Family | DX: G47.33 Obstructive sleep apnea (adult) (pediatric) (principal); G47.61 Periodic limb movement disorder; E66.3 Overweight; Z68.39 Body mass index [BMI] 39.0-39.9, adult | CPT/HCPCS: 95810 ==

== ENCOUNTER 2020-04-23 07:57 | Outpatient (CLI) | payer OTHER ==
--- NOTE | 2020-04-23 08:33 | SLEEP CARE CONSULTATION ---
Information from patient questionnaire entered by Lacy Daugherty. I have reviewed and concur with the information entered by Lacy Daugherty. This document represents the service I personally performed and the decisions made by , Arlen Armstrong ARNP. History of Present Illness Service Date and Time: 04/23/2020 075 Initial [place] Sleepiness Scale score: 15 (in 2020) Additional HPI information: CANDIDA BAEZA returns for follow up and results of the recently performed polysomnography. His study showed mild obstructive sleep apnea with average AHI 5.9 and a chrissy of 84%. His supine AHI 11.8 and non-supine 3.0. He has severe periodic limb movements that added to fragmentation of sleep. I explained the pathophysiology behind obstructive sleep apnea. We then spent quite a bit of time discussing different treatment options. For mild obstructive sleep apnea, surgery and oral appliance are alternatives to nasal CPAP therapy but in moderate or severe cases, nasal CPAP is the most effective and reliable treatment. Because apnea is primarily in supine position, then positional management therapy could be effective. Methods discussed such as positioning with pillows, using a T-shirt with tennis balls in the back, and shown commercial products that have a pillow format on back to prevent supine sleep. I reviewed the impact of weight changes on sleep apnea and strongly recommended losing weight. After some discussion, the patient opted to go with the nasal CPAP therapy. A manual titration study will be ordered to find optimal pressure with office adjustments. I explained how CPAP machine works with sample devices [employer] Dreamstation and [employer] [id number] and what to expect when using the machine. Using CPAP every night in order to get used to it was emphasized. Patient advised to put CPAP mask on before getting into bed so as not to fall asleep without CPAP. To assist acclimation to CPAP use, it could also be used for a short time during day while reading or watching TV. The patient was instructed to call the CPAP supplier to discuss any mechanical problem that may occur. If the mask given is uncomfortable or is difficult to keep on through the night even with adjustment, contact the CPAP supplier as many will replace with another mask style if notified before 30 days. If snoring or perceives is not getting enough air or too much air from the machine, notify this office. [facility] patient education PAP tips reviewed and given to patient. Patient counseled not drink alcohol less than 4 hours before bedtime as it can increase snoring and apnea. Patient was cautioned about risks of drowsy driving until sleepiness symptoms resolve. Sleep Study - Results Type of Sleep Study: Polysomnography Prior sleep studies: No Polysomnography/Home Sleep Study results: IMPRESSION: The quality of the study is good. The patient had normal sleep efficiency. The sleep architecture was abnormal for sleep fragmentation and reduced amount of time spent in slow wave sleep (N3). Respiratory monitoring showed mild obstructive sleep apnea-hypopnea (AHI = 5.9) associated with frequent arousals, oxyhemoglobin desaturation and mild hypoxia (chrissy oxygen saturation of 84%). The respiratory events occurred almost exclusively during supine sleep (supine AHI = 11.8; non-supine = 3.00). Snore was loud in intensity. There was severe periodic leg movement of sleep contributing to the sleep fragmentation. Cardiac rhythm was normal sinus rhythm without significant arrhythmia. No abnormal behavior (parasomnia) observed during the night. Allergies and Home Medications Drug allergies reviewed: Yes (NKDA) Home medication list reviewed: Yes (no changes) Review of Systems Review of systems same as previous: Yes (no changes) Physical Exam Heart Rate: 65 O2 Saturation: 98 Height: 5 ft 5 in Weight: 178 lb Body Mass Index: 29.6 BMI Classification: Overweight Impression and Plan 1. Obstructive Sleep Apnea-Hypopnea Syndrome, mild, with lowest oxygen saturation of 84%. Obviously this is the cause of the patients symptoms of unrefreshed sleep, and excessive daytime sleepiness. Positive pressure therapy could benefit his hypertension. A manual titration study will be completed to find optimal treatment pressure with office adjustments. Compliance guidelines also reviewed. A copy of compliance guidelines will be given for reference at check out. Because the apnea is more severe supine, I instructed to avoid sleeping supine using pillow positioning until able to start CPAP use. 2. Periodic limb movement, severe, that did fragment patients sleep. Periodic limb movement of sleep (PLMS) is characterized by episodes of repetitive limb movements that occur during sleep and usually involve the lower limbs. The etiology is unknown but can be associated with restless leg syndrome (RLS), neuropathy, spinal cord diseases, kidney disease, rheumatological disorders, narcolepsy, obstructive sleep apnea, and REM sleep behavior disorder. Other factors that can increase PLMS and/or RLS are heredity and iron deficiency as reflected by a low serum ferritin level below 50 to 75mcg / L. Several medications can precipitate or aggravate PLMS such as selective serotonin re- uptake inhibitor antidepressants, tricyclic antidepressants, lithium, and dopamine receptor antagonists with the exception of bupropion. Caffeine can also aggravate PLMS and should be avoided. Sleep hygiene methods can also improve sleep as well as lifestyle changes such as regular exercise. Patient was advised that further evaluation is indicated and he should follow up with his PCP. * Titration study. * Follow up with PCP with severe PLMs * Continue to lose weight. * Avoid alcohol consumption near bedtime. * Avoid supine sleep until using CPAP. * The patient is again cautioned about driving until sleepiness completely resolves. * Return after titration study to get set up for CPAP therapy. Visit Type: In Office Time Spent with Patient (minutes): 24 Provider Statement: I spent 100% of the Face to Face Visit with the patient with greater than 50% spent counseling the patient and coordination of care.
== END 2020-04-23 07:58 | disposition home or self-care (01) ==
LOC: SC 07:57
PROVIDERS: ATTEND Nurse Practitioner Family
DX: G47.33 Obstructive sleep apnea (adult) (pediatric) (principal); G47.61 Periodic limb movement disorder; E66.3 Overweight; Z68.29 Body mass index [BMI] 29.0-29.9, adult
CPT/HCPCS: 99212; 99213

== ENCOUNTER 2020-05-21 19:30 | Outpatient (CLI) | payer OTHER | END 2020-05-21 19:31 | disposition home or self-care (01) | LOC: SC 19:30 | PROVIDERS: ATTEND Nurse Practitioner Family | DX: G47.33 Obstructive sleep apnea (adult) (pediatric) (principal); G47.61 Periodic limb movement disorder | CPT/HCPCS: 95811 ==

== ENCOUNTER 2020-05-28 16:21 | Outpatient (CLI) | payer OTHER ==
--- NOTE | 2020-05-28 08:36 | SLEEP CARE CONSULTATION ---
Information from patient questionnaire entered by Alice Diaz. I have reviewed and concur with the information entered by Alice Diaz. This document represents the service I personally performed and the decisions made by , Arlen Armstrong ARNP. History of Present Illness Service Date and Time: 05/28/2020819 Initial [place] Sleepiness Scale score: 15 (in 2019) Current [place] Sleepiness Scale score: 12 Additional HPI information: CANDIDA BAEZA retruns for follow up of the sleep study via Telehealth visits with a manual CPAP titration study performed on 05-21-2020. The patient was informed of the following polysomnography findings: Patient has mild obstructive sleep apnea with an AHI of 5.9 on previous study. His titration study showed that the optimal CPAP pressure is 5 cm H2O. Sleep Study - Results Type of Sleep Study: Polysomnography Year and Where: 05/2020 [facility] Polysomnography/Home Sleep Study results: IMPRESSION: The quality of the study is good. CPAP was initiated at 4 cmH2O and titrated up to CPAP at 5 cmH2O. CPAP at 5 cmH2O appeared to be optimal (AHI of 0.4 per hour on the pre ssure). There was supine REM sleep on the pressure. Oxygen saturation was normal throughout the night. The lower CPAP setting appeared adequate as well. The patient tolerated positive airway pressure therapy fairly well. The patients sleep efficiency was reduced due to a prolonged awakening in the second half of the night.. The sleep architecture was relatively normal considering the first-night effect. There was severe periodic leg movement of sleep not associated with sleep fragmentation. Cardiac rhythm was normal sinus rhythm with rare premature ventricular contractions. No abnormal behavior (parasomnia) observed during the night. Allergies and Home Medications Drug allergies reviewed: Yes (NKDA) Home medication list reviewed: Yes (no changes) Review of Systems Review of systems same as previous: Yes (no changes) Physical Exam Vital signs obtained and entered by: Telehealth visit to reduce exposure to Covid virus, no vitals obtained Height: 5 ft 5 in Impression and Plan 1. Obstructive Sleep Apnea-Hypopnea Syndrome, mild. As stated previously, this is a possible cause of the patients symptoms of unrefreshed sleep, and excessive daytime sleepiness. Positive pressure therapy could benefit his hypertension. He has also lost some weight recently and feels that his has been positively affecting his hypertension. The patient will be started on nasal autoCPAP therapy with pressure set at 5-8 cmH2O. Compliance guidelines also reviewed. A copy of compliance guidelines will be given for reference at check out. Patient will be called by office staff for set up with DME supplier and he will follow up a month after starting the CPAP therapy. * Nasal auto CPAP therapy, pressure at 5-8 cm H2O. * Continue to try to lose weight. * Avoid alcohol consumption near bedtime. * Avoid supine sleep until using CPAP. * The patient is again cautioned about driving until sleepiness completely resolves. * Return one month after CPAP obtained. I will assess response to therapy and compliance at that time. Counseling Topics: Sleeping position, Weight loss health impact Visit Type: Telehealth Video Video Type: Doximity Patient Location: Home Location of Provider: Home Patient agrees and consents to this telehealth visit type: Yes Patient agrees to have their insurance billed: Yes Time Spent with Patient (minutes): 18 Provider Statement: I spent 100% of the Telehealth Video Call with the patient with greater than 50% spent counseling the patient and coordination of care.
== END 2020-05-28 16:22 | disposition home or self-care (01) ==
LOC: SC 16:21
PROVIDERS: ATTEND Nurse Practitioner Family
DX: G47.33 Obstructive sleep apnea (adult) (pediatric) (principal)

== ENCOUNTER 2020-07-30 07:32 | Outpatient (CLI) | payer OTHER ==
--- NOTE | 2020-07-30 08:18 | SLEEP CARE CONSULTATION ---
Information from patient questionnaire entered by Lacy Daugherty. I have reviewed and concur with the information entered by Lacy Daugherty. This document represents the service I personally performed and the decisions made by , Arlen Armstrong ARNP. History of Present Illness Service Date and Time: 07/30/2020 0732 Previous diagnosis: Mild, Obstructive Sleep Apnea-Hypopnea Syndrome AHI: 5.9 (in 2019) Reason for follow up: first compliance Equipment type: CPAP [facility] Mask style: Nasal Mask brand: Resmed Backup mask available: No (waiting for new supplies to keep old mask) Last cushion change: just over a month Prior sleep studies: Yes Year and Where: 2019 - [facility] sleep Type of Sleep Study: Polysomnography HPI additional information: CANDIDA BAEZA was diagnosed to have mild, AHI 5.9, obstructive sleep apnea- hypopnea syndrome and returned today for CPAP therapy first compliance follow- up. CPAP Compliance Data - Data Reviewed with Patient Average duration of nightly device use: 7 hr 35 min Compliance rate %: 100 Current pressure setting (cmH2O): 5-8 Humidity settin Average residual AHI: 0.5 Central apnea: 0.0 Obstructive apnea: 0.2 Subjective Patient concerns: reports: nasal congestion (usually only on one side), dry mouth, nose, throat (dry mouth occasionally). denies: aerophagia, mask discomfort, air blowing in eyes, mask leak noise, condensation in mask/hose, epistaxis, other Observed to snore while using device: No Current pressure setting perceived as: comfortable On therapy, patient: reports: sleeping better, awakening more refreshed, being more awake and alert during the day, more rested overall. denies: drowsiness while driving Initial [place] Sleepiness Scale score: 15 (in 2019) Current [place] Sleepiness Scale score: 12 Allergies and Home Medications Drug allergies reviewed: Yes (NKDA) Home medication list reviewed: Yes (no changes) Review of Systems Review of systems same as previous: No (C-Pac usage 06-24-20) Physical Exam Heart Rate: 62 O2 Saturation: 98 Height: 5 ft 5 in Weight: 183 lb Body Mass Index: 30.4 BMI Classification: Obese Impression and Plan 1. Obstructive Sleep Apnea-Hypopnea Syndrome, mild, with excellent treatment compliance and excellent apnea control. On CPAP therapy, the patient has better sleep quality and is more rested overall. He has had some mild nasal congestion, usually only on one side. Nasal congestion can be reduced with increasing the CPAP humidity as shown on sample device. The heated hose can be adjusted higher if condensation with higher humidity setting. He has also has some mouth dryness more recently. Oral dryness can be reduced by adjusting humidity setting higher or heated hose lower or by adjusting both settings. Verbal instructions given on how to change humidity and heated hose settings with rationale explaining why to change. He feels very comfortable with his treatment and has no complaints at this time. I will have him follow up in 3 months. He will call if he has any issues with the pressure or other questions. Patient's apnea severity and rationale for treatment to reduce apnea, improve sleep quality and reduce cardiovascular and cerebrovascular events was reviewed. I also reviewed the benefit of consistent device use of CPAP for hypertension. * Continue auto CPAP pressure at 5-8 cmH2O * Notify me if snoring with mask or feeling that the pressure is too much or too little * Attempt to lose weight * Call this office if any problems using CPAP * Return for follow up in 3 months, or sooner if concerns arise Counseling Topics: Spare mask, Weight loss health impact Visit Type: In Office Time Spent with Patient (minutes): 19 Provider Statement: I spent 100% of the Face to Face Visit with the patient with greater than 50% spent counseling the patient and coordination of care.
== END 2020-07-30 07:33 | disposition home or self-care (01) ==
LOC: SC 07:32
PROVIDERS: ATTEND Nurse Practitioner Family
DX: G47.33 Obstructive sleep apnea (adult) (pediatric) (principal); E66.9 Obesity, unspecified; Z68.30 Body mass index [BMI] 30.0-30.9, adult
CPT/HCPCS: 99212; 99213

== ENCOUNTER 2020-10-01 08:29 | Outpatient (CLI) | payer OTHER ==
--- NOTE | 2020-10-01 08:49 | SLEEP CARE CONSULTATION ---
Information from patient questionnaire entered by Lacy Daugherty. I have reviewed and concur with the information entered by Lacy Daugherty. This document represents the service I personally performed and the decisions made by , Arlen Armstrong ARNP. History of Present Illness Service Date and Time: 10/01/2020 08 Previous diagnosis: Mild, Obstructive Sleep Apnea-Hypopnea Syndrome AHI: 5.9 (in 2019) Reason for follow up: three month Equipment type: CPAP Equipment obtained from: [employer] (getting supplies as needed) Mask style: Nasal (over the nose) Backup mask available: Yes (other mask) Last cushion change: yesterday Prior sleep studies: Yes Year and Where: 2019 - [facility] sleep Type of Sleep Study: Polysomnography HPI additional information: CANDIDA BAEZA was diagnosed to have mild, AHI 5.9, obstructive sleep apnea- hypopnea syndrome and returned today for CPAP therapy three month follow-up. CPAP Compliance Data - Data Reviewed with Patient Average duration of nightly device use: 7 hr 33 min Compliance rate %: 99 (90 days) Current pressure setting (cmH2O): 5-8 Humidity settin Average residual AHI: 0.5 Subjective Patient concerns: reports: dry mouth, nose, throat (occasional). denies: aerophagia, mask discomfort, air blowing in eyes, mask leak noise, condensation in mask/hose, nasal congestion, epistaxis, other Observed to snore while using device: No Current pressure setting perceived as: comfortable On therapy, patient: reports: sleeping better, awakening more refreshed, being more awake and alert during the day, more rested overall. denies: drowsiness while driving Initial [place] Sleepiness Scale score: 15 (in 2019) Current [place] Sleepiness Scale score: 11 Allergies and Home Medications Drug allergies reviewed: Yes (NKDA) Home medication list reviewed: Yes (no changes) Review of Systems Review of systems same as previous: Yes (no changes) Physical Exam Heart Rate: 65 O2 Saturation: 98 Height: 5 ft 5 in Weight: 178 lb Body Mass Index: 29.6 BMI Classification: Overweight Impression and Plan 1. Obstructive Sleep Apnea-Hypopnea Syndrome, mild, with excellent treatment compliance and excellent apnea control. On CPAP therapy, the patient has better sleep quality and is more rested overall. He has been having some occasional mouth dryness. I reviewed with patient that oral dryness can be reduced by adjusting humidity setting higher or heated hose lower or by adjusting both settings. Verbal instructions given on how to change humidity and heated hose settings with rationale explaining why to change. He voiced understanding. Patient's apnea severity and rationale for treatment to reduce apnea, improve sleep quality and reduce cardiovascular and cerebrovascular events was reviewed. I also reviewed the benefit of consistent device use of CPAP for hypertension. * Continue autoCPAP pressure at 5-8 cmH2O * Notify me if snoring with mask or feeling that the pressure is too much or too little * Attempt to lose weight * Call this office if any problems using CPAP * Return for follow up in 6 months, or sooner if concerns arise Counseling Topics: Spare mask, Weight loss health impact Visit Type: In Office Time Spent with Patient (minutes): 15 Provider Statement: I spent 100% of the Face to Face Visit with the patient with greater than 50% spent counseling the patient and coordination of care.
== END 2020-10-01 08:30 | disposition home or self-care (01) ==
LOC: SC 08:29
PROVIDERS: ATTEND Nurse Practitioner Family
DX: G47.33 Obstructive sleep apnea (adult) (pediatric) (principal); E66.3 Overweight; Z68.29 Body mass index [BMI] 29.0-29.9, adult
CPT/HCPCS: 99212

== ENCOUNTER 2022-10-07 10:14 | Outpatient (CLI) | payer OTHER ==
[2022-10-07 10:52] VITALS: BP 132/80
--- NOTE | 2022-10-07 10:52 | SLEEP CARE CONSULTATION ---
Information from patient questionnaire entered by Yuniel Munoz. I have reviewed and concur with the information entered by Yuniel Munoz. This document represents the service I personally performed and the decisions made by me, Arlen Armstrong ARNP. History of Present Illness Service Date and Time: 10/07/2022 1014 Previous diagnosis: Mild, Obstructive Sleep Apnea-Hypopnea Syndrome AHI: 5.9 (in 2019) Reason for follow up: annual (LAST SEEN 09/2020) Equipment type: CPAP (RESMED Airsense 10, s/u 05/1021) Equipment obtained from: [employer] (getting supplies as needed) Mask style: Nasal (over the nose) Mask brand: Resmed ([id number]) Backup mask available: Yes (old mask) Last cushion change: this morning [facility]: Yes [facility] Type of Sleep Study: Pol[facility] HPI additional information: CANDIDA BAEZA was diagnosed to have mild, AHI 5.9, obstructive sleep apnea- hypopnea syndrome and returned today for CPAP therapy annual follow-up. Sleep Study - Results Type of Sleep Study: Polysomnography Prior sleep studies: Yes [facility] CP[facility] Compliance Data - Data Reviewed with Patient Average duration of nightly device use: 7 HRS 47 MIN Compliance rate %: 86 (04/09/2022-10/05/2022; 155/180 days) Current pressure setting (cmH2O): 5-8 Average residual AHI: 0.5 Central apnea: 0.0 Obstructive apnea: 0.3 Subjective Missed days of use due to: reports: travel (on vacation, does not take CPAP with him) Patient concerns: reports: mask leak noise, condensation in mask/hose. denies: aerophagia, mask discomfort, air blowing in eyes, nasal congestion, dry mouth, nose, throat, epistaxis Observed to snore while using device: No Current pressure setting perceived as: comfortable On therapy, patient: reports: sleeping better, awakening more refreshed, being more awake and alert during the day, more rested overall. denies: drowsiness while driving Initial [place] Sleepiness Scale score: 15 (in 2019) Current [place] Sleepiness Scale score: 12 (10/07/22) Allergies and Home Medications Known drug allergies: No Drug allergies reviewed: Yes Home medication list reviewed: Yes (see list update in EMR) Review of Systems Review of systems same as previous: Yes (no changes) Physical Exam Vital signs obtained and entered by: YUNIEL Elias MA Blood Pressure: 132/80 (LEFT ARM) Cuff size: regular Heart Rate: 75 O2 Saturation: 96 Height: 5 ft 5 in Weight: 173 lb 12.8 oz Weight change since last visit: 3-4 loss Body Mass Index: 28.9 BMI Classification: Overweight Impression and Plan 1. Obstructive Sleep Apnea-Hypopnea Syndrome, mild, with good treatment compliance and good apnea control. On CPAP therapy, the patient has better sleep quality and is more rested overall. Patient has significant improvement of their sleep apnea and is satisfied with current CPAP therapy. Patient has had some condensation in the mask. I reviewed how to adjust his humidity and heated hose with him. He voiced understanding and will try this to reduce the condensation. Patient's apnea severity and rationale for treatment to reduce apnea, improve sleep quality and reduce cardiovascular and cerebrovascular events was reviewed. I also reviewed the benefit of consistent device use of CPAP for hypertension. 2. Overweight, unspecified. Currently patients BMI is 28.9. Obesity increases the risk of apnea, CPAP pressure requirements and overall health risks especially cardiovascular and diabetes. Thus patient is advised to lose weight. * Continue auto CPAP pressure at 5-8 cmH2O * Update supplies * Notify me if snoring with mask or feeling that the pressure is too much or too little * Attempt to lose weight * Call this office if any problems using CPAP * Return for follow up in 1 year, or sooner if concerns arise Counseling Topics: Spare mask, Weight loss health impact Visit Type: In Office Time Spent with Patient (minutes): 20 Provider Statement: I spent 100% of the Face to Face Visit with the patient with greater than 50% spent counseling the patient and coordination of care.
== END 2022-10-07 10:15 | disposition home or self-care (01) ==
LOC: SC 10:14
PROVIDERS: ATTEND Nurse Practitioner Family
DX: G47.33 Obstructive sleep apnea (adult) (pediatric) (principal); E66.3 Overweight; Z68.28 Body mass index [BMI] 28.0-28.9, adult
CPT/HCPCS: 99212; 99213

== ENCOUNTER 2023-10-20 13:00 | Outpatient (CLI) | payer OTHER ==
--- NOTE | 2023-10-20 13:43 | Sleep Patient Instructions ---
Sleep Center Visit Summary - Patient Visit Information Reason for Visit: Annual follow-up - Patient Instructions Additional Instructions: You will continue with CPAP therapy with pressure set at 5-8 cmH2O. A supply prescription will be updated with your DME. We encourage you to continue to try to lose weight. Please follow up with the sleep care office in 1 year. - Clinic Information Contact: [facility] [address] [place] [address] [email or web address] T: [phone]
--- NOTE | 2023-10-20 13:45 | SLEEP CARE CONSULTATION ---
Information from patient questionnaire entered by Yuniel Munoz. I have reviewed and concur with the information entered by Yuniel Munoz. This document represents the service I personally performed and the decisions made by , Arlen Armstrong ARNP. History of Present Illness Service Date and Time: 10/20/2023 1300 Previous diagnosis: Mild, Obstructive Sleep Apnea-Hypopnea Syndrome AHI: 5.9 (in 2019) Reason for follow up: annual (LAST SEEN 09/2022) Equipment type: CPAP (RESMED Airsense 10, s/u 05/1021) Equipment obtained from: [employer] (getting supplies as needed) Mask style: Nasal (over the nose) Backup mask available: Yes Last cushion change: today Prior sleep studies: Yes Year and Where: 2019 - [facility] sleep Type of Sleep Study: Polysomnography HPI additional information: CANDIDA BAEZA was diagnosed to have mild, AHI 5.9, obstructive sleep apnea- hypopnea syndrome and returned today for CPAP therapy annual follow-up. Sleep Study - Results Type of Sleep Study: Polysomnography Prior sleep studies: Yes Year and Where: 2019 - [facility] sleep CPAP Compliance Data - Data Reviewed with Patient Average duration of nightly device use: 7 HRS 45 MINS Compliance rate %: 91 (10/18/22-10/17/23; 335/365 days used) Current pressure setting (cmH2O): 5-8 Average residual AHI: 0.5 Central apnea: 0 Obstructive apnea: 0.3 Hypopnea: 0.1 Average large leak: 0.1 L/min Subjective Missed days of use due to: reports: travel Patient concerns: reports: mask leak noise, condensation in mask/hose. denies: aerophagia, mask discomfort, air blowing in eyes, nasal congestion, dry mouth, nose, throat, epistaxis Observed to snore while using device: No Current pressure setting perceived as: comfortable On therapy, patient: reports: sleeping better, awakening more refreshed, being more awake and alert during the day, more rested overall. denies: drowsiness while driving Initial [place] Sleepiness Scale score: 15 (in 2019) Current [place] Sleepiness Scale score: 10 (10/20/23) Allergies and Home Medications Known drug allergies: No Drug allergies reviewed: Yes Home medication list reviewed: Yes (Jardiance 10 mg; Tolterodine 22 mg) Allergy and home medication list: Allergies No Known Drug Allergies Allergy (Verified 10/18/23 10:57) Review of Systems Review of systems same as previous: No (METAL PLATES AND SCREW REMOVED FROM RIGHT ANKLE) Physical Exam Vital signs obtained and entered by: YUNIEL Elias MA Blood Pressure: 138/80 (LEFT ARM) Cuff size: regular Heart Rate: 78 O2 Saturation: 97 Height: 5 ft 5 in Weight: 166 lb 9.6 oz Weight change since last visit: 7 lb loss Body Mass Index: 27.7 BMI Classification: Overweight Impression and Plan 1. Obstructive Sleep Apnea-Hypopnea Syndrome, mild, with good treatment compliance and good apnea control. On CPAP therapy, the patient has better sleep quality and is more rested overall. Patient has significant improvement of their sleep apnea and is satisfied with current CPAP therapy. He has been getting a little condensation in the mask occasionally. We discussed how to adjust the heated hose and humidity to reduce condensation and he voiced understanding. Patient's apnea severity and rationale for treatment to reduce apnea, improve sleep quality and reduce cardiovascular and cerebrovascular events was reviewed. I also reviewed the benefit of consistent device use of CPAP for hypertension. 2. Overweight, unspecified. Currently patients BMI is 27.7. He has lost weight. He switched to a Mediterranean Diet. Obesity increases the risk of apnea, CPAP pressure requirements and overall health risks especially cardiovascular and diabetes. Thus patient is advised to continue to try to lose weight. * Continue auto CPAP pressure at 5-8 cmH2O * Update supply prescription * Notify me if snoring with mask or feeling that the pressure is too much or too little * Continue to try to lose weight * Call this office if any problems using CPAP * Return for follow up in 12 months, or sooner if concerns arise Counseling Topics: Spare mask, Weight loss health impact Prescriptions: Device supplies Follow up with Sleep Care in: 1 year Visit Type: In Office Time Spent with Patient (minutes): 20 Provider Statement: I spent 100% of the Face to Face Visit with the patient with greater than 50% spent counseling the patient and coordination of care.
[2023-10-20 13:50] VITALS: BP 138/80; O2SAT 97
== END 2023-10-20 13:01 | disposition home or self-care (01) ==
LOC: SC 13:00
PROVIDERS: ATTEND Nurse Practitioner Family
DX: G47.33 Obstructive sleep apnea (adult) (pediatric) (principal); E66.3 Overweight; Z68.27 Body mass index [BMI] 27.0-27.9, adult
CPT/HCPCS: 99212; 99213